=== PATIENT | female | born 1995 | race Caucasian/White ===

== ENCOUNTER 2018-01-13 20:12 | Emergency (ER) | payer SELFPAY ==
[~2018-01-13 20:12] MED LIST: MOTRIN 600600 MG/TAB PO; PERCOCET 325 MG1 TA2 PO; PRENATAL1 TA1
[2018-01-13 20:19] VITALS: BP 148/91; TEMP 98.6
[2018-01-13] MEDS ORDERED: ILOTYCIN5 MG/GM OP (21:36)
[2018-01-13 21:44] VITALS: PULSE 90
== END 2018-01-13 21:45 | disposition home or self-care (01) ==
LOC: COL.ER 20:12
DX: H10.9 Unspecified conjunctivitis (principal)

== ENCOUNTER 2018-03-07 00:06 | Emergency (ER) | payer SELFPAY ==
[~2018-03-07] VITALS: Ht 162.6 cm; Wt 45.5 kg
[~2018-03-07 00:06] MED LIST changes: +ILOTYCIN5 MG/GM OP
[2018-03-07 00:11] VITALS: TEMP 98
[2018-03-07] MEDS ORDERED: LILETTA52 MG IY (00:15)
[2018-03-07 01:12] LABS: COLLECTION METHOD CLEAN CATCH
[2018-03-07 01:12] LABS: BASO % 0.2 % (0.0-2.0); EOS # 0.2 (0.0-0.7); EOS % 1.5 % (0-4.0); GRAN # 8.3 (1.4-6.5); GRAN % 65.2 % (42.2-75.2); HEMATOCRIT 41.8 % (37.0-47.0); HEMOGLOBIN 14.1 g/dl (12.5-16.0); LYMPH # 3.5 (1.2-3.4); LYMPH % 27.2 % (20.0-51.0); MEAN CELL VOLUME 91 fl (80.0-100.0); MEAN CORPUSCULAR HEMOGLOBIN 31 pg (27.0-31.0); MEAN CORPUSCULAR HGB CONC 34 g/dl (33.0-37.0); MEAN PLATELET VOLUME 9.9 fl (7.4-10.4); MONO # 0.7 (0.1-0.6); MONO % 5.6 % (1.7-9.3); PLATELET COUNT 278 K/mm3 (130-400); RED BLOOD COUNT 4.58 M/mm3 (4.10-5.30); REDCELL DISTRIBUTION WIDTH-CV 13.3 % (11.5-14.5)
[2018-03-07 01:22] LABS: AMORPHOUS CRYSTAL Present /uL; MUCOUS Present /lpf; PH 7 (5-8); URINE APPEARANCE Turbid; URINE BACTERIA None Seen /hpf; URINE BILIRUBIN Negative (NEGATIVE); URINE BLOOD 1+ (NEGATIVE); URINE COLOR Yellow; URINE GLUCOSE Negative (NEGATIVE); URINE KETONE Negative (NEGATIVE); URINE LEUKOCYTE ESTERASE 2+ (NEGATIVE); URINE NITRATE Negative (NEGATIVE); URINE PROTEIN(semi-quant) 1+ (NEGATIVE); URINE UROBILINOGEN Negative (NEGATIVE)
[2018-03-07 01:24] LABS: ALANINE AMINOTRANSFERASE 30 U/L (9-52); ALBUMIN 4.3 gm/dL (3.5-5.0); ALKALINE PHOSPHATASE 81 U/L (50-136); ANION GAP 12 mmol/L (7-16); AST,SGOT 26 U/L (15-37); BILIRUBIN,TOTAL 0.3 mg/dL (0.0-1.0); BLOOD UREA NITROGEN 13 mg/dL (7-17); CARBON DIOXIDE 26 mmol/L (22-30); CHLORIDE 101 mmol/L (98-107); CREATININE, serum 0.58 mg/dL (0.52-1.25); GLUCOSE 89 mg/dL (74-106); POTASSIUM 3.8 mmol/L (3.4-5.0); SODIUM 140 mmol/L (137-145); TOTAL PROTEIN 7.5 gm/dL (6.4-8.2)
[2018-03-07 01:46] LABS: HCG,QUANTITATIVE < 2 mIU/mL (0-5)
[2018-03-07] MEDS ORDERED: FLAGYL500 MG PO ×3 (03:10→04:28)
[2018-03-07] MEDS ORDERED: CEPHALEXIN500 M1 PO ×2 (03:10)
[2018-03-07] MEDS ORDERED: CIPRO 500MG TA500 MG PO (04:28)
[2018-03-07 04:45] VITALS: BP 118/88; PULSE 92
== END 2018-03-07 04:45 | disposition home or self-care (01) ==
LOC: COL.ER 00:06
PROVIDERS: Physician Assistant
DX: N39.0 Urinary tract infection, site not specified (principal); K56.41 Fecal impaction; N76.0 Acute vaginitis; Z98.890 Other specified postprocedural states
CPT/HCPCS: J1885; Q9967

== ENCOUNTER 2019-11-22 05:05 | Emergency (ER) | payer SELFPAY ==
[~2019-11-22] VITALS: Ht 167.6 cm; Wt 50.0 kg
[~2019-11-22 05:05] MED LIST changes: +CEPHALEXIN500 M1 PO; +CIPRO 500MG TA500 MG PO; +FLAGYL500 MG PO; +LILETTA52 MG IY
[2019-11-22 05:21] VITALS: TEMP 99.8
[2019-11-22 06:58] LABS: HEMOGLOBIN 13.7 g/dl (12.5-16.0); MEAN CELL VOLUME 90 fl (80.0-100.0); MEAN CORPUSCULAR HEMOGLOBIN 31 pg (27.0-31.0); MEAN CORPUSCULAR HGB CONC 34 g/dl (33.0-37.0); MEAN PLATELET VOLUME 10.3 fl (7.4-10.4); PLATELET COUNT 250 K/mm3 (130-400); RED BLOOD COUNT 4.43 M/mm3 (4.10-5.30); REDCELL DISTRIBUTION WIDTH-CV 13.3 % (11.5-14.5)
[2019-11-22 07:09] LABS: ALBUMIN 4.2 gm/dL (3.5-5.0); BILIRUBIN,TOTAL 0.6 mg/dL (0.0-1.0); C-REACTIVE PROTEIN 5.6 mg/dL (0.0-0.9); CALCIUM 9.9 mg/dL (8.4-10.2); CREATININE, serum 0.52 (0.52-1.25); POTASSIUM 3.6 mmol/L (3.4-5.0); TOTAL PROTEIN 7.4 gm/dL (6.4-8.2)
[2019-11-22 07:19] LABS: BAND 16 % (0-10); BASOPHIL 1 % (0-2); EOSINOPHIL 1 % (0-4); LYMPHOCYTE 13 % (20.0-51.0); NEUTROPHILS 63 % (42.0-75.2); PLATELET ESTIMATE NORMAL (NORMAL)
[2019-11-22] MEDS ORDERED: FLAGYL500 MG PO (08:32)
[2019-11-22] MEDS ORDERED: NORCO 325 MG-51 TAB PO (08:32)
[2019-11-22] MEDS ORDERED: DOXYCYCLINE 10100 MG PO (08:32)
[2019-11-22] MEDS ORDERED: TRI-SPRINTEC 281 TAB PO (09:09)
[2019-11-22 09:10] LABS: COLLECTION METHOD CLEAN CATCH
[2019-11-22 09:16] VITALS: BP 122/67; PULSE 97
[2019-11-22 09:16] LABS: MUCOUS Present /lpf; PH 8 (5-8); SQUAMOUS EPITHELIAL 0-2 /hpf; URINE APPEARANCE Clear; URINE BACTERIA None Seen /hpf; URINE BILIRUBIN Negative (NEGATIVE); URINE BLOOD Negative (NEGATIVE); URINE COLOR Yellow; URINE GLUCOSE Negative (NEGATIVE); URINE KETONE Negative (NEGATIVE); URINE LEUKOCYTE ESTERASE Negative (NEGATIVE); URINE NITRATE Negative (NEGATIVE); URINE PROTEIN(semi-quant) Negative (NEGATIVE); URINE RBC 0-2 /hpf; URINE UROBILINOGEN Negative (NEGATIVE)
== END 2019-11-22 09:18 | disposition home or self-care (01) ==
LOC: COL.ER 05:05
PROVIDERS: Emergency Medicine
DX: N73.9 Female pelvic inflammatory disease, unspecified (principal); F17.210 Nicotine dependence, cigarettes, uncomplicated; Z98.890 Other specified postprocedural states
CPT/HCPCS: J0696; J1170; J7030